=== PATIENT | female | born 1955 ===

== ENCOUNTER 2016-12-16 10:55 | Emergency (ER) | payer MEDICAID ==
[2016-12-16 11:23] VITALS: BP 146/95; PULSE 83; RESP 16; TEMP 98; O2SAT 98; BMI 26.6
--- NOTE | 2016-12-16 11:28 | ED PDOC ---
Lower Extremity Pain/Injury Time Seen by Provider: 12/16/16 11:26 Chief Complaint (Nursing): Lower Extremity Problem/Injury Chief Complaint (Provider): left knee pain History Per: Patient ( 61 y/o female here for left knee pain noted x few weeks. Seen by [facility] with negative duplex and Xry studies last week. Has rx for naproxen but did not take b/c she did not want to get addicted. 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 Denies any falls. Requests MRI of knee.) Past Medical History Reviewed: Historical Data, Nursing Documentation, Vital Signs Vital Signs: Last Vital Signs Temp 98 F 12/16/16 11:00 Pulse 83 12/16/16 11:00 Resp 16 12/16/16 11:00 BP 146/95 H 12/16/16 11:00 Pulse Ox 98 12/16/16 11:00 - Medical History PMH: Arthritis, Diverticulitis, Hyperlipidemia - Family History Family History: States: No Known Family Hx - Home Medications Home Medications: Ambulatory Orders Medication Instructions Recorded Acetaminophen with Codeine 1 each PO Q6 PRN #12 tablet 11/12/16 [Tylenol with Codeine #3 Tablet] Moxifloxacin [Avelox] 400 mg PO DAILY #7 tab 11/12/16 - Allergies Allergies/Adverse Reactions: Allergies Allergy/AdvReac Type Severity Reaction Status Date / Time No Known Allergies Allergy Verified 12/16/16 11:16 Review of Systems ROS Statement: Except As Marked, All Systems Reviewed And Found Negative Musculoskeletal: Positive for: Other (knee pain) Physical Exam - Reviewed Nursing Documentation Reviewed: Yes Vital Signs Reviewed: Yes - Physical Exam Appears: Positive for: Well, Non-toxic, No Acute Distress Head Exam: Positive for: ATRAUMATIC, NORMAL INSPECTION, NORMOCEPHALIC Skin: Positive for: Normal Color, Warm, DRY Eye Exam: Positive for: EOMI, Normal appearance, PERRL ENT: Positive for: Normal ENT Inspection Neck: Positive for: Normal, Painless ROM Cardiovascular/Chest: Positive for: Regular Rate, Rhythm Respiratory: Positive for: CNT, Normal Breath Sounds Gastrointestinal/Abdominal: Positive for: Normal Exam, Bowel Sounds, Soft Back: Positive for: Normal Inspection Extremity: Positive for: Normal ROM, Swelling (minimal effusion of left knee noted. No erythema/nontender. Able to Flex and extend without difficulty.) Neurologic/Psych: Positive for: Alert, Oriented - ECG O2 Sat by Pulse Oximetry: 98 - Progress ED Course And Treament: d/w patient ice and use of naproxen at this time for symptoms. Decreased activity and f/u with [facility]. Emilio wrap in ED. Disposition - Clinical Impression Clinical Impression: Arthritis - Patient ED Disposition Is Patient to be Admitted: No - Disposition Disposition: Routine/Home Disposition Time: 11:29 Condition: FAIR Additional Instructions: PLEASE START NAPROXEN X 3 DAYS WITH FOOD AND THEN PRN PAIN PLACE ICE DAILY 40 MINUTES OVER JOINT DECREASE ACTIVITY. Instructions: Knee Pain (ED)
== END 2016-12-16 11:45 | disposition home or self-care (01) ==
LOC: H.ER 10:55
DX: M25.562 Pain in left knee (principal); E78.5 Hyperlipidemia, unspecified